=== PATIENT | male | born 1940 | race Caucasian/White ===

== ENCOUNTER 2023-04-19 15:17 | Emergency (ER) | payer MEDICARE ==
[~2023-04-19] VITALS: Ht 175.3 cm; Wt 86.4 kg
[~2023-04-19 15:17] MED LIST: LEVO150T73 PO; LISI20TA28 PO; OMEP-84 PO; ZOC40T PO
[2023-04-19 15:21] VITALS: BP 134/57
[2023-04-19] MEDS ORDERED: HYDROcodone/acetaminophen 10/325mg tab PO ONE (16:20)
[2023-04-19] MEDS ORDERED: HYDR-3973 PO (16:30)
== END 2023-04-19 17:06 | disposition home or self-care (01) ==
LOC: ER 15:18
DX: M25.512 Pain in left shoulder (principal); E07.9 Disorder of thyroid, unspecified; I10 Essential (primary) hypertension; Z88.0 Allergy status to penicillin; Z79.899 Other long term (current) drug therapy
CPT/HCPCS: 73030; 99283; A4565